=== PATIENT | female | born 1990 | race Caucasian/White ===

== ENCOUNTER 2021-01-22 13:46 | Emergency (ER) | payer SELFPAY ==
[2021-01-22 13:48] VITALS: BP 107/61; PULSE 81; RESP 18; TEMP 36.9; O2SAT 100; BMI 29.0
--- NOTE | 2021-01-22 13:49 | ECG_ITS ---
[facility] Test Date: 2021-01-22 Pat Name: Joyce Grant Department: Room: Gender: Female Pastry Assistant: : 1990 Requested By: Sanchez Rocha Order Number: [id number] Reading MD: POORNIMA PIERSON Measurements Intervals [place] Rate: 83 P: 66 NE: 139 QRS: 67 QRSD: 91 T: 26 QT: 369 QTc: 434 Interpretive Statements SINUS RHYTHM WITH SINUS ARRHYTHMIA No previous ECG available for comparison Electronically Signed On 01-22-2021 20:13:11 CDT by POORNIMA PIERSON [id number]
[2021-01-22 13:54] VITALS: BP 111/78; PULSE 86; RESP 18; O2SAT 100
[2021-01-22 13:55] VITALS: BP 111/78; BP 117/63; BP 99/63; PULSE 119; PULSE 71; PULSE 96
--- NOTE | 2021-01-22 14:05 | XR_ITS ---
WS: [id number] Cervical spine, 4 views, 01/22/2021 Clinical Data: fall Comparison: None. Findings: No compression fractures are seen. The disc heights are normal. There is no prevertebral so ft tissue swelling. The odontoid is unremarkable. The soft tissues of the neck and the lung apices ar e normal. XR/XR cervical spine 3V* [id number] Impression: Negative cervical spine.
--- NOTE | 2021-01-22 14:05 | CT_ITS ---
WS: [id number] CT HEAD NONCONTRAST HISTORY: fall, closed head injury TECHNIQUE: Contiguous axial imaging performed through the brain in 2.5 mm imaging. Bone and soft tiss ue windows. Sagittal and coronal reformats reviewed. All CT scans at [facility] use at le ast one of these dose optimization techniques: automated exposure control; mA and/or kV adjustment pe r patient size (includes targeted exams where dose is matched to clinical indication); or iterative r econstruction. DLP: 737.38 mGy.cm COMPARISON: None available. No acute intracranial hemorrhage, midline shift or mass effect. No atrophy or prior infarcts or herniation. Ventricles: Normal size with no hydrocephalus. Paranasal sinuses: As visualized are clear. Mastoid air cells: Well pneumatized. Calvarium and scalp: Skull is intact with no soft tissue edema or swelling. CT/CT head wo con* [id number] IMPRESSION: 1. No acute intracranial hemorrhage or edema. 2. No skull fracture.
--- NOTE | 2021-01-22 14:07 | ED_ITS ---
HPI - Syncope General: Chief Complaint: Syncope Stated Complaint: SYNCOPAL EPISODE/ LOC Time Seen by Provider: 01/22/21 13:48 History of Present Illness: HPI narrative: 30-year-old female who go to the bathroom and had a syncopal episode. She states she cannot really remember much she fell hit her head on the wall and found herself on the floor. States she has had some nausea vomiting recently no diarrhea she denies any hematemesis coffee-ground, this was going on prior to this episode. She is not had any diarrhea she has any shortness of breath no chest pain pressure no leg swelling she is not on any anticoagulants does not take any uvso-pky-wkrdwby or stimulant medications. EMS reported she had a blood pressure below 100 systolic in route. She is complaining of head and neck pain now. MD complaint: loss of consciousness and collapsed Onset (ago): minute(s) Prodromal symptoms: none Witnessed: No Context: standing up Injuries sustained associated with event: neck and head Associated symptoms: Deny abdominal pain, chest pain, fever(s), headache(s), lightheadedness, nausea, short of breath, vertigo or weakness Treatments prior to arrival: IV fluids Review of Systems Const: Denies: fever(s) ENMT: Denies: throat pain, ear or mastoid pain, nasal discharge or nasal congestion Card: Denies: lightheadedness Resp: Denies: dyspnea, productive cough or non-productive cough GI: Denies: abdominal pain or nausea : Denies: flank pain, difficulty voiding, dysuria, urinary frequency or urinary urgency Skin/Breast: Denies: rash or pruritus Neuro: Denies: headache(s) or vertigo Physical Exam Const: COMMON NORMALS: no acute distress GENERAL APPEARANCE: cooperative and comfortable ORIENTATION/CONSCIOUSNESS: Yes oriented to person, Yes oriented to place and Yes oriented to time HENMT: COMMON NORMALS: normocephalic, atraumatic and hearing grossly normal bilaterally HEAD & SCALP: normocephalic and atraumatic Eye: COMMON NORMALS: Equal, round and reactive pupils present, EOMs intact bilaterally, conjunctivae normal and no scleral icterus CONJUNCTIVA: Yes conjunctivae normal PUPIL: Yes Equal, round and reactive pupils present Neck/C-Spine: COMMON NORMALS: no JVD Resp: COMMON NORMALS: normal respiratory effort, No retractions, No use of accessory muscles and clear to auscultation bilaterally AUSCULTATION: clear to auscultation bilaterally Cardio: COMMON NORMALS: no JVD, regular rate, regular rhythm and No murmurs present (Cardio) RATE: regular rate RHYTHM: regular rhythm GI: COMMON NORMALS: Soft to palpation and No hepatosplenomegaly present AUSCULTATION: Yes normoactive bowel sounds PALPATION: Yes Soft to palpation, No Tenderness to palpation present (GI), No Guarding due to palpation present (GI) and Yes No hepatosplenomegaly present Extremity: COMMON NORMALS: normal to inspection, capillary refill normal, no clubbing, cyanosis or edema, no calf tenderness and no pedal edema Neuro: SENSORIUM/ORIENTATION: Yes oriented to person, Yes oriented to place and Yes oriented to time Skin: COMMON NORMALS: no rashes or lesions noted GENERAL SKIN EXAM: no rashes or lesions noted Course Vital Signs: Vital signs: Vital Signs Temperature 98.4 F 01/22/21 13:48 Pulse Rate 81 01/22/21 15:31 Respiratory Rate 19 H 01/22/21 15:31 Blood Pressure 122/69 01/22/21 15:31 Pulse Oximetry 100 01/22/21 15:31 MDM - Syncope MDM Narrative: Medical decision making narrative: Patient is feeling much better after fluids. Dolliver precipitated by the GI symptoms she had she has been having nausea and vomiting her blood pressure is much improved after fluids we will go and discharge her home Lab Data: Labs: Lab Results 01/22/21 01/22/21 01/22/21 Range/Units 14:03 14:03 14:03 WBC 10.8 H (4.0-10.0) 10^3/ uL RBC 5.06 (4.1-5.3) 10^6/u L Hgb 12.5 (11.5-15.3) g/dL Hct 40.8 (37.0-47.0) % MCV 80.6 L (81-99) fL MCH 24.7 L (28.0-34.0) pg MCHC 30.6 (30.0-36.0) g/dL RDW 15.2 H (12.1-15.1) % Plt Count 411 H (130-400) 10^3/c mm MPV 11.4 H (7.4-10.4) fL Neut % (Auto) 73.9 % Lymph % (Auto) 18.5 % [place] % (Auto) 6.1 % Eos % (Auto) 0.8 % Baso % (Auto) 0.4 % Neut # (Auto) 7.94 H (1.8-7.7) 10^3/u L Lymph # (Auto) 2.0 (0.8-4.8) 10^3/u L [place] # (Auto) 0.7 (0.2-0.9) 10^3/u L Eos # (Auto) 0.1 (0.0-0.8) 10^3/u L Baso # (Auto) 0.0 (0.0-0.1) 10^3/u L Nucleated RBC % (a uto) 0 % Nucleated RBCs # 0.0 /100WBC Sodium 137 (136-145) mmol/L Potassium 3.6 (3.5-5.1) mmol/L Chloride 102 (98-107) mmol/L Carbon Dioxide 23 (22-29) mmol/L Anion Gap 15.6 (5-19) BUN 12 (6-20) mg/dL Creatinine 0.7 (0.5-0.9) mg/dL GFR Calculation 98.9 (90-130) mL/min Glucose 129 H (65-115) mg/dL Calculated Osmolal ity 285 (285-295) mOsm/k g Calcium 8.5 (8.5-10.5) mg/dL Total Bilirubin 0.4 (0.15-1.2) mg/dL AST 12 (0-32) U/L ALT 9 (0-33) U/L Alkaline Phosphata se 67 (35-105) IU/L Total Protein 7.7 (6.6-8.7) g/dL Albumin 4.4 (3.5-5.2) g/dL Globulin 3.3 (1.3-4.6) g/dL HCG, Qual Negative (Negative) Discharge Plan Discharge Patient Disposition: Home Clinical Impression: Syncope Condition: Stable Prescriptions: No Action No Known Home Medications RF: 0 Discharge Orders: Discharge ED (Routine); Ordered 01/22/21 Ordered By: Sanchez Chawla Discharge Diet: Clear Liquid Discharge Activity: Increase activity as tolerated Patient Instructions: Opioid Safety Activity Restrictions/Additional Instructions: Liquid diet for 24 to 48 hours advance as needed. Case management will help you establish with a primary care physician. Coding Level of Care Code ED Pediatric Neuropsychologist for Chg Fwd Exam Comprehensive
[2021-01-22] MEDS: sodium chloride 0.9% 1,000 ML 999 ML IV (14:13)
[2021-01-22 14:14] LABS: Basophils % 0.4 %; Eosinophils # 0.1 10^3/uL (0.0-0.8); Eosinophils % 0.8 %; Hematocrit 40.8 % (37.0-47.0); Hemoglobin 12.5 g/dL (11.5-15.3); Lymphocytes % 18.5 %; Mean Corpuscular HGB Conc 30.6 g/dL (30.0-36.0); Mean Corpuscular Hemoglobin 24.7 pg (28.0-34.0); Mean Corpuscular Volume 80.6 fL (81-99); Mean Platelet Volume 11.4 fL (7.4-10.4); Monocytes # 0.7 10^3/uL (0.2-0.9); Monocytes % 6.1 %; Neutrophils # 7.94 10^3/uL (1.8-7.7); Neutrophils % 73.9 %; Nucleated Red Blood Cells % 0 %; Platelet Count 411 10^3/cmm (130-400); Red Blood Count 5.06 10^6/uL (4.1-5.3); Red Cell Distribution Width 15.2 % (12.1-15.1); White Blood Count 10.8 10^3/uL (4.0-10.0)
[2021-01-22 14:33] LABS: HCG, Serum Qual Negative (Negative)
[2021-01-22 14:38] LABS: Anion Gap 15.6 (5-19); Blood Urea Nitrogen 12 mg/dL (6-20); Carbon Dioxide 23 mmol/L (22-29); Chloride 102 mmol/L (98-107); Glomerular Filtration Rate 98.9 mL/min (90-130); Potassium 3.6 mmol/L (3.5-5.1); Sodium 137 mmol/L (136-145)
[2021-01-22 14:39] LABS: Alanine Aminotransferase 9 U/L (0-33); Albumin Level 4.4 g/dL (3.5-5.2); Alkaline Phosphatase 67 IU/L (35-105); Aspartate Amino Transferase 12 U/L (0-32); Calcium 8.5 mg/dL (8.5-10.5); Globulin 3.3 g/dL (1.3-4.6); Glucose 129 mg/dL (65-115); Osmolality Calculated 285 mOsm/kg (285-295); Total Bilirubin 0.4 mg/dL (0.15-1.2); Total Protein 7.7 g/dL (6.6-8.7)
[2021-01-22 15:31] VITALS: BP 122/69; PULSE 81; RESP 19; O2SAT 100
--- NOTE | 2021-01-26 10:00 | DCPLANNER ---
biodiesel product development manager had message to speak with patient about getting established with a primary care physician. biodiesel product development manager called phone number [phone], was told that this was the wrong number.
== END 2021-01-22 15:33 | disposition home or self-care (01) ==
LOC: ER 15:19
PROVIDERS: Emergency Provider Family Medicine
DX: R55 Syncope and collapse (principal)
CPT/HCPCS: 70450; 72040; 80053; 84703; 85025; 93005; 96360; 99284; J7030

== ENCOUNTER 2021-07-23 15:04 | Emergency (ER) | payer BC, SELFPAY ==
[2021-07-23 15:13] VITALS: BP 118/85; PULSE 94; RESP 16; TEMP 36.8; O2SAT 98
[2021-07-23 18:54] VITALS: BP 125/88; PULSE 82; RESP 16; O2SAT 98
[2021-07-23 19:13] LABS: Basophils % 0.3 %; Eosinophils % 0.9 %; Hematocrit 44.6 % (37.0-47.0); Hemoglobin 14.1 g/dL (11.5-15.3); Lymphocytes # 1.6 10^3/uL (0.8-4.8); Lymphocytes % 45.2 %; Mean Corpuscular HGB Conc 31.6 g/dL (30.0-36.0); Mean Corpuscular Hemoglobin 24.5 pg (28.0-34.0); Mean Corpuscular Volume 77.6 fl (81-99); Mean Platelet Volume 11.2 fL (7.4-10.4); Monocytes # 0.3 10^3/uL (0.2-0.9); Monocytes % 7.3 %; Neutrophils # 1.58 10^3/uL (1.8-7.7); Nucleated Red Blood Cells % 0 %; Platelet Count 229 10^3/cmm (130-400); Red Blood Count 5.75 10^6/uL (4.1-5.3); Red Cell Distribution Width 16.2 % (12.1-15.1); White Blood Count 3.4 10^3/uL (4.0-10.0)
[2021-07-23] MEDS: ondansetron 2 mg/ML SDV 2 mL 4 MG IVP (19:30)
[2021-07-23] MEDS: metoclopramide 5 mg/mL SDV 2 mL 10 MG IVP (19:30)
[2021-07-23] MEDS: sodium chloride 0.9% 1,000 ML 999 ML IV ×2 (19:30→19:34)
[2021-07-23 19:31] LABS: Ketone (Acetest) Serum Negative (Negative)
[2021-07-23 19:51] LABS: Alanine Aminotransferase 11 U/L (0-33); Albumin Level 4.7 g/dL (3.5-5.2); Alkaline Phosphatase 57 IU/L (35-105); Aspartate Amino Transferase 18 U/L (0-32); Blood Urea Nitrogen 9 mg/dL (6-20); C Reactive Protein 2.9 mg/L (0.0-4.9); Calcium 9.2 mg/dL (8.5-10.5); Carbon Dioxide 22 mmol/L (22-29); Chloride 100 mmol/L (98-107); Creatinine Clr Calc Pharmacy 149.0354; Globulin 3.8 g/dL (1.3-4.6); Glomerular Filtration Rate 118.2 mL/min (90-130); Glucose 74 mg/dL (65-115); Lipase 44 U/L (13-60); Magnesium 2.2 mg/dL (1.7-2.3); Osmolality Calculated 281 mOsm/kg (285-295); Sodium 137 mmol/L (136-145); Total Bilirubin 0.4 mg/dL (0.15-1.2); Total Protein 8.5 g/dL (6.6-8.7)
[2021-07-23 19:52] LABS: Anion Gap 19.1 (5-19); Potassium 4.1 mmol/L (3.5-5.1)
--- NOTE | 2021-07-23 21:16 | W.ED.NAVMDI ---
HPI - Nausea/Vomiting/Diarrhea General: Chief complaint: Nausea/Vomiting/Diarrhea Stated complaint: Unable to hold down fluids Time Seen by Provider: 07/23/21 18:48 History of Present Illness: HPI Narrative: 30-year-old female who believes she is 4 weeks . She presents with vomiting multiple times today. She says that she has had this problem with her 4 previous children. No fever, no vaginal bleeding, no loss of fluid, mild cramping that is resolved. Otherwise no belly pain. No other discharge MD elicited complaint: nausea and vomiting Pertinent past history: other Onset (ago): hour(s) Description of vomiting: watery Associated nausea: Yes Associated abdominal pain: No Location of pain: None Quality: cramping (Mild resolved) Exacerbating factors: eating Relieving factors: none Associated symtoms: Reports nausea; Denies chest pain or dysuria Review of Systems Const: Denies: fever(s) or chills Card: Denies: chest pain Resp: Denies: dyspnea or non-productive cough GI: Reports: nausea and vomiting; Denies: abdominal pain : Denies: difficulty voiding, dysuria, vaginal bleeding or vaginal discharge Physical Exam Const: COMMON NORMALS: no acute distress, patient oriented x3 and alert Chest: COMMONS NORMALS: normal inspection of the chest Resp: COMMON NORMALS: normal respiratory effort, No use of accessory muscles and clear to auscultation bilaterally AUSCULTATION: clear to auscultation bilaterally Cardio: COMMON NORMALS: regular rate and regular rhythm RATE: regular rate RHYTHM: regular rhythm GI: COMMON NORMALS: Normal to inspection, nondistended, normoactive bowel sounds present, Soft to palpation and non-tender PALPATION: Yes Soft to palpation Neuro: COMMON NORMALS: patient oriented x3 SENSORIUM/ORIENTATION: Yes alert Course Vital Signs: Vital signs: Vital Signs Temperature 98.3 F 07/23/21 15:13 Pulse Rate 82 07/23/21 18:54 Respiratory Rate 16 07/23/21 18:54 Blood Pressure 125/88 07/23/21 18:54 Pulse Oximetry 98 07/23/21 18:54 MDM - Nausea/Vomiting/Diarrhea MDM Narrative: Medical decision making narrative: 30-year-old female with a history of hyperemesis with previous pregnancies. She reports vomiting today. Her white blood cell count is mildly low, with low neutrophil count, although she is not neutropenic. This should be rechecked. The patient was told this laboratory is otherwise benign. Serum ketones are negative urine shows 3+ ketones and is otherwise negative. She is received 2 L of fluid in the ER as well as antiemetic and is feeling better. She will be discharged on antiemetics. Close outpatient follow-up Lab Data: Labs: Lab Results 07/23/21 07/23/21 07/23/21 19:00 19:00 19:00 WBC 3.4 10^3/uL L 10^ 3/uL (4.0-10.0) RBC 5.75 10^6/uL H 10 ^6/uL (4.1-5.3) Hgb 14.1 g/dL g/dL (11.5-15.3) Hct 44.6 % % (37.0-47.0) MCV 77.6 fl L fl (81-99) MCH 24.5 pg L pg (28.0-34.0) MCHC 31.6 g/dL g/dL (30.0-36.0) RDW 16.2 % H % (12.1-15.1) Plt Count 229 10^3/cmm 10^3 /cmm (130-400) MPV 11.2 fL H fL (7.4-10.4) Neut % (Auto) 46.0 % % Lymph % (Auto) 45.2 % % [place] % (Auto) 7.3 % % Eos % (Auto) 0.9 % % Baso % (Auto) 0.3 % % Neut # (Auto) 1.58 10^3/uL L 10 ^3/uL (1.8-7.7) Lymph # (Auto) 1.6 10^3/uL 10^3/ uL (0.8-4.8) [place] # (Auto) 0.3 10^3/uL 10^3/ uL (0.2-0.9) Eos # (Auto) 0.0 10^3/uL 10^3/ uL (0.0-0.8) Baso # (Auto) 0.0 10^3/uL 10^3/ uL (0.0-0.1) Nucleated RBC % (a uto) 0 % % Nucleated RBCs # 0.0 /100WBC /100W BC Sodium 137 mmol/L mmol/L (136-145) Potassium 4.1 mmol/L mmol/L (3.5-5.1) Chloride 100 mmol/L mmol/L (98-107) Carbon Dioxide 22 mmol/L mmol/L (22-29) Anion Gap 19.1 H (5-19) BUN 9 mg/dL mg/dL (6-20) Creatinine 0.6 mg/dL mg/dL (0.5-0.9) GFR Calculation 118.2 mL/min mL/m in (90-130) Glucose 74 mg/dL mg/dL (65-115) Calculated Osmolal ity 281 mOsm/kg L mOs m/kg (285-295) Calcium 9.2 mg/dL mg/dL (8.5-10.5) Magnesium 2.2 mg/dL mg/dL (1.7-2.3) Total Bilirubin 0.4 mg/dL mg/dL (0.15-1.2) AST 18 U/L U/L (0-32) ALT 11 U/L U/L (0-33) Alkaline Phosphata se 57 IU/L IU/L (35-105) C-Reactive Protein 2.9 mg/L mg/L (0.0-4.9) Total Protein 8.5 g/dL g/dL (6.6-8.7) Albumin 4.7 g/dL g/dL (3.5-5.2) Globulin 3.8 g/dL g/dL (1.3-4.6) Lipase 44 U/L U/L (13-60) Ser , Gwyn i-Qnt 176.40 mIU/mL mIU /mL Urine Color Urine Appearance Urine pH Ur Specific Gravit y Urine Protein Urine Glucose (UA) Urine Ketones Urine Blood Urine Nitrate Urine Bilirubin Urine Urobilinogen Ur Leukocyte Chantale ase Amorphous Sediment Serum Ketones Negative (Negative) 07/23/21 21:09 WBC RBC Hgb Hct MCV MCH MCHC RDW Plt Count MPV Neut % (Auto) Lymph % (Auto) [place] % (Auto) Eos % (Auto) Baso % (Auto) Neut # (Auto) Lymph # (Auto) [place] # (Auto) Eos # (Auto) Baso # (Auto) Nucleated RBC % (a uto) Nucleated RBCs # Sodium Potassium Chloride Carbon Dioxide Anion Gap BUN Creatinine GFR Calculation Glucose Calculated Osmolal ity Calcium Magnesium Total Bilirubin AST ALT Alkaline Phosphata se C-Reactive Protein Total Protein Albumin Globulin Lipase Ser , Gwyn i-Qnt Urine Color Yellow (Yellow) Urine Appearance Sl hazy (CLEAR) Urine pH 5 (5-7) Ur Specific Gravit y 1.020 (1.005-1.030) Urine Protein Trace (Negative) Urine Glucose (UA) Norm (Normal) Urine Ketones 3+ H (Negative) Urine Blood Neg (Negative) Urine Nitrate Negative (Negative) Urine Bilirubin 1+ H (Negative) Urine Urobilinogen 1 mg/dL H mg/dL (Negative) Ur Leukocyte Chantale ase Negative (Negative) Amorphous Sediment Not Reportable Serum Ketones Discharge Plan Discharge Patient Disposition: Home Clinical Impression: Vomiting affecting Condition: Stable Prescriptions: New Zofran 4 mg tablet 4 mg PO Q6H PRN (Reason: nausea and vomiting) Qty: 10 RF: 0 Reglan 10 mg tablet 10 mg PO Q6H 7 Days Qty: 28 RF: 0 Discharge Orders: Discharge ED (Routine); Ordered 07/23/21 Ordered By: Amos Falk Discharge Diet: Advance as tolerated and Clear Liquid Discharge Activity: Increase activity as tolerated Patient Instructions: Nausea and Vomiting in (ED) Activity Restrictions/Additional Instructions: Alternate nausea medications up to every 3 hours as needed for nausea. Start with a clear liquid diet and increase from there. Call your doctor for a follow-up appointment regarding your vomiting and . Coding Level of Care Code ED Wire Stitcher Operator for Delicia Fwd Exam Detailed
[2021-07-23 21:33] LABS: Add Urine Microscopic? YES; Bilirubin Urine 1+ (Negative); Blood Urine Neg (Negative); Glucose Urine UA Norm (Normal); Ketones Urine 3+ (Negative); Leukocyte Esterase Urine Negative (Negative); Nitrate Urine Negative (Negative); Protein Urine Trace (Negative); Urine Appearance SL Hazy (CLEAR); Urine Color Yellow (Yellow); Urobilinogen Urine 1 mg/dL (Negative); pH Urine 5 (5-7)
[2021-07-23 21:34] VITALS: BP 114/83; PULSE 74; RESP 19; O2SAT 100
[2021-07-23 21:41] LABS: RBC Urine 0-4 /hpf (0-2); WBC Urine 0-4 /hpf (0-5)
[2021-07-23 21:42] LABS: Add Urine Culture? No; Bacteria Urine 1+ /hpf; Mucus Urine 4+ /hpf
== END 2021-07-23 21:34 | disposition home or self-care (01) ==
PROVIDERS: Emergency Provider Emergency Medicine
DX: O21.9 Vomiting of pregnancy, unspecified (principal); Z3A.01 Less than 8 weeks gestation of pregnancy
CPT/HCPCS: 80053; 81001; 82009; 83690; 83735; 84702; 85025; 86140; 96361; 96374; 96375; 99284; J2405; J2765; J7030

== ENCOUNTER 2021-07-29 09:37 | Outpatient (CLI) | payer BC, SELFPAY | END 2021-07-29 09:38 | disposition home or self-care (01) | LOC: LAB 09:46 | PROVIDERS: Visit Provider Nurse Practitioner Women's Health | DX: Z87.59 Personal history of other complications of pregnancy, childbirth and the puerperium (principal) | CPT/HCPCS: 36415; 81025; 84702; 86850; 86900 ==

== ENCOUNTER 2021-07-30 21:13 | Emergency (ER) | payer BC, SELFPAY ==
[2021-07-30 21:27] VITALS: BP 127/85; PULSE 82; RESP 18; TEMP 36.7; O2SAT 100; BMI 25.9
--- NOTE | 2021-07-30 22:22 | ED_ITS ---
HPI - General: Chief complaint: Abdominal Pain Stated complaint: vaginal bleeding Time Seen by Provider: 07/30/21 22:21 History of Present Illness: HPI Narrative: Ms Abbott is a 30-year-old lady -2-3-4 lady currently approximately 6 weeks with LMP / who presents emergency department due to cramping. She notes increased cramping that was subacute in onset for the past few days. She has mild associated sharp pain that is worse in her cervix today. She has had minimal discharge but no significant bleeding. No passage of tissue. She has baseline hyperemesis which is treated at home, no evidence of significant dehydration on clinical history. No other specific exacerbating or alleviating factors. She does have a history of miscarriage Review of Systems General: Reports: 10 or more systems reviewed and unremarkable except in HPI and below PFSH ED PFSH: Medical History (Updated 07/31/21 @ 02:03 by Celestino Membreno MD) History of hyperemesis gravidarum with all her pregnancies-- zofran was the only thing that helped her. She has tried reglan, but that does not help as much as zofran. History of miscarriage History of labor delivered at 31 weeks; unknown cause for PTL and delivery. No pertinent past medical history neg dx- htn,dm,thyroid, dvt/pe PCP: none Surgical History (Updated 07/29/21 @ 08:57 by Tabby Burr APN, MAI) History of D&C 2019-- for heavy menses; benign but possibly had polyp. Performed in [place]. History of knee surgery 2007- right knee cartilage and meniscus repair--in [place] Family History Family/Other Clotting disorder unknown of who on maternal side Breast cancer aunts x 2 on maternal/ 1 aunt on paternal Grandfather Diabetes maternal Grandmother Stroke maternal Denies family history of Colon cancer Ovarian cancer Bleeding disorder Hypertension Uterine cancer Thyroid disease Physical Exam Narrative: EXAM NARRATIVE: GENERAL/CONSTITUTIONAL - well-appearing. No acute distress. Eyes -no scleral icterus, no conjunctival injection ENMT - Atraumatic external nose and ears. Moist mucous membranes NECK - supple. trachea midline CARDIOVASCULAR - regular rate and rhythm. RESPIRATORY -clear to auscultation bilaterally. No retractions or accessory muscle use. ABDOMEN/GI -mild tenderness palpation of the suprapubic region. MSK - Extremities without obvious deformity or tenderness to palpation SKIN - Warm, Dry NEURO - alert and appropriately oriented. Moves all extremities equally. PSYCH -anxious, at times tearful Course ED course: - Patient was seen and evaluated by me at bedside - Patient placed on cardiac monitors, IV access obtained - Initial evaluation notable for no acute distress, nontoxic appearance. - Labs notable for beta hCG is similar to one 48 hours prior which is atypical. Urinalysis not concerning for urinary tract infection - Pelvic exam performed with senior quality assurance specialist present, mild mucoid discharge from the cervix, cervix appears visually closed. - Given concern for of unclear location and beta-hCG not increasing as expected ultrasound is required - Imaging notable for no evidence of ectopic as visualized on ultrasound - Upon serial reexamination after treatment the patient was similar - Based on patient history, evaluation, labs, and imaging as interpreted the most likely cause of the patient's condition is failed - The results of ED evaluation were discussed with the patient including prescriptions and/or symptomatic cares (if applicable) including appropriate and responsible use, followup plan, and return precautions. I explained that beta- hCG is expected to double and in this case has not as well as being abnormally low likely indicating an abnormal from beginning (failed ). I also explained that based on hCG the patient is below the level at which I would expect to see a gestational sac definitively on imaging which makes further characterization or diagnosis difficult. - Patient discharged in satisfactory condition. Vital Signs: Vital signs: Vital Signs Temperature 98.0 F 07/30/21 21:27 Pulse Rate 73 07/31/21 03:16 Respiratory Rate 18 07/30/21 23:06 Blood Pressure 132/82 07/31/21 03:16 Pulse Oximetry 100 07/31/21 03:16 MDM - OB/Uterine Contractions Medical Records: Attestation: I reviewed the patient's medical records. Lab Data: Attestation: I reviewed the patient's lab results. Labs: Lab Results 07/30/21 07/31/21 21:34 00:03 Ser , Gwyn i-Qnt 517.00 mIU/mL mIU /mL Urine Color Yellow (Yellow) Urine Appearance Clear (CLEAR) Urine pH 5 (5-7) Ur Specific Gravit y 1.020 (1.005-1.030) Urine Protein Neg (Negative) Urine Glucose (UA) Norm (Normal) Urine Ketones Negative (Negative) Urine Blood Neg (Negative) Urine Nitrate Negative (Negative) Urine Bilirubin Neg (Negative) Urine Urobilinogen 1 mg/dL H mg/dL (Negative) Ur Leukocyte Chantale ase Negative (Negative) Discharge Plan Discharge Patient Disposition: Home Clinical Impression: of unknown anatomic location, Miscarriage, threatened, early , Abdominal cramping Condition: Stable Prescriptions: No Action Zofran 4 mg tablet 4 mg PO Q6H PRN (Reason: nausea and vomiting) Qty: 10 RF: 0 Discharge Orders: Discharge ED (Routine); Ordered 07/31/21 Ordered By: Celestino Membreno Discharge Diet: Usual diet Discharge Activity: Resume usual activity Patient Instructions: Threatened Miscarriage (ED) Activity Restrictions/Additional Instructions: Thank you for visiting the emergency department. You were seen and evaluated for related concerns. On visual inspection there was small amounts of mucus-like drainage from the cervix however visually the cervix appeared closed. Your beta hCG was 517, previously this was 538. In normal we generally expect 48-hour doubling at this point of . Ultrasound did not reveal a intrauterine gestational sac. There is no evidence of ectopic preg angela. Please follow-up with your WRAPPER LAYER AND EXAMINER SOFT WORK team. Please return to the emergency department for anything that you are concerned about and feel needs emergency department evaluation. Coding Level of Care Code ED Banquet Houseperson for Delicia Ellis
[2021-07-30 22:43] LABS: Add Urine Microscopic? NO; Charge for UA Resulting for Rev
[2021-07-30 23:04] LABS: Bilirubin Urine Neg (Negative); Blood Urine Neg (Negative); Glucose Urine UA Norm (Normal); Ketones Urine Negative (Negative); Leukocyte Esterase Urine Negative (Negative); Nitrate Urine Negative (Negative); Protein Urine Neg (Negative); Urine Appearance Clear (CLEAR); Urine Color Yellow (Yellow); Urobilinogen Urine 1 mg/dL (Negative); pH Urine 5 (5-7)
[2021-07-30 23:06] VITALS: BP 128/86; PULSE 78; RESP 18; O2SAT 100
--- NOTE | 2021-07-31 00:53 | USR_ITS ---
PROCEDURE INFORMATION: Exam: US , Transvaginal Exam date and time: 07/31/2021 12:53 AM Age: 30 years old Clinical indication: Lmp or gestational age (in weeks): 5w6d; Other: Cramping; ; Additional info: Abdominal pain, beta hcg failed to double <1000, R/O ectopic TECHNIQUE: Imaging protocol: Real-time transvaginal obstetrical ultrasound of the maternal pelvis with image documentation. Transvaginal imaging was used for better evaluation of the fetus, adnexa, and/or cervix. COMPARISON: No relevant prior studies available. FINDINGS: Gestation: There is no evidence for an intrauterine gestational sac. MATERNAL: Uterus: The uterus measures 7.1 x 3.5 x 4.8 cm. The endometrium measures 8.7 mm in thickness. Right adnexa: The right ovary measures 2.6 x 1.8 x 2.3 cm. Vascular flow is demonstrated within the right ovary with color Doppler and duplex waveform sonography. PSV 5.7 cm/s, RI 0.50. There is a 1.6 x 1.6 x 1.4 cm hypoattenuation complex cystic mass seen within the right ovary possibly representing the corpus luteum. Left adnexa: The left ovary measures 2.51.5 x 2.1 cm. Vascular flow is demonstrated within the left ovary with color Doppler and duplex waveform sonography. PSV 2.9 cm/s, RI 0.67. US/US OB transvaginal [id number] IMPRESSION: 1. There is no evidence for an intrauterine gestation. 2. There is a complex cystic mass seen within the right ovary that may represent the corpus luteum. 3. There are no abnormal fluid collections or adnexal masses present to suggest ectopic . Further follow-up beta HCG levels, clinical correlation and pelvic sonography is suggested. Radiation Dose CTDIVOL = (mGy): DLP = (mGy-cm)
[2021-07-31 02:16] VITALS: BP 122/83; PULSE 82; O2SAT 100
[2021-07-31 03:16] VITALS: BP 132/82; PULSE 73; O2SAT 100
--- NOTE | 2021-08-02 15:44 | DCPLANNER ---
senior electrical project manager had message to schedule a follow up appointment for patient with [facility]. senior electrical project manager called the [facility], spoke with Carlos, gave clinic patients information. senior electrical project manager was told that patients information would be printed and reviewed. Clinic will call patient with appointment information.
--- NOTE | 2021-08-26 11:04 | DCPLANNER ---
Patient had an appointment scheduled with [facility] - patient moved and appointment was cancelled.
== END 2021-07-31 03:21 | disposition home or self-care (01) ==
PROVIDERS: Emergency Provider Emergency Medicine
DX: O20.0 Threatened abortion (principal); Z3A.01 Less than 8 weeks gestation of pregnancy; Z87.59 Personal history of other complications of pregnancy, childbirth and the puerperium; N96 Recurrent pregnancy loss
CPT/HCPCS: 76817; 81003; 84702; 87210; 87491; 87591; 99283

== ENCOUNTER → 2021-08-02 15:05 | Outpatient (BNVA) | payer BC, SELFPAY | PROVIDERS: Referring Provider Nurse Practitioner Women's Health; Visit Provider Nurse Practitioner Women's Health | DX: Z87.59 Personal history of other complications of pregnancy, childbirth and the puerperium (principal); O36.80X0 Pregnancy with inconclusive fetal viability, not applicable or unspecified | CPT/HCPCS: 84702 ==